=== PATIENT | female | born 1945 | race Caucasian/White ===

== ENCOUNTER → 2016-10-01 | Outpatient (CLI) | payer MEDICARE ==
--- NOTE | 2016-10-01 11:14 | RAD ---
EXAM DESCRIPTION: Elbow,Left 3 Views CLINICAL HISTORY: 71 years Female, PAIN IN LT ELBOW COMPARISON: None. FINDINGS: 3 views of the left elbow show no acute fracture or malalignment. This calcification the soft tissues adjacent to the medial humeral epicondyle which may be related to chronic or remote medial epicondylitis. No joint effusion is identified. There is a small enthesophyte arising from the olecranon at the insertion site of the triceps tendon. Degenerative calcifications are noted along the medial aspect of the left elbow joint. IMPRESSION: Degenerative changes including olecranon spurring, but no acute left elbow abnormality. Electronically signed by: Pavel Dyson MD 10/01/2016 11:12 AM CDT Workstation: [email or web address]
== END ==
LOC: RAD 07:50
PROVIDERS: ATTEND Orthopaedic Surgery
DX: M25.522 Pain in left elbow (principal)

== ENCOUNTER → 2017-03-05 | Outpatient (CLI) | payer MEDICARE | END | disposition home or self-care (01) | LOC: GMAB 11:39 | PROVIDERS: ATTEND Family Medicine | DX: I10 Essential (primary) hypertension (principal) ==

== ENCOUNTER → 2017-12-16 | Outpatient (CLI) | payer MEDICARE ==
--- NOTE | 2017-12-16 09:31 | RAD ---
EXAM DESCRIPTION: Elbow,Left 3 x-ray Views CLINICAL HISTORY: PAIN IN LEFT ELBOW COMPARISON: Previous study October 01, 2016 TECHNIQUE: AP, Lateral, and Oblique FINDINGS: Three-view left elbow shows no fracture or dislocation. There is no bone lesion. Arthritic changes are present with spurring around the radial neck, olecranon and coronoid process of the proximal ulna as well as distal humerus. No joint effusion is evident. There is no radiopaque foreign body. Mild periosteal new bone formation of the distal humeral metaphysis laterally. This was present previously. IMPRESSION: Degenerative changes of the left elbow. Electronically signed by: Adithya Ward MD 12/16/2017 9:30 AM CDT
== END ==
LOC: RAD 08:25
PROVIDERS: ATTEND Orthopaedic Surgery
DX: M25.522 Pain in left elbow (principal)

== ENCOUNTER → 2018-01-13 | Outpatient (CLI) | payer MEDICARE ==
--- NOTE | 2018-01-13 08:35 | RAD ---
EXAM DESCRIPTION: Clavicle,Left CLINICAL HISTORY: 72 years Female, CLAVICLE PAIN COMPARISON: None. TECHNIQUE: 2 views of the left clavicle were obtained. FINDINGS: Moderate degenerative changes are identified in the chromic clavicular joint. The clavicle otherwise appears normal. IMPRESSION: Moderate osteoarthritis of the left acromioclavicular joint. Electronically signed by: [place] Leyva MD 01/13/2018 8:33 AM CDT
--- NOTE | 2018-01-13 08:36 | RAD ---
EXAM DESCRIPTION: Shoulder,Left 2 or More Views CLINICAL HISTORY: 72 years Female, SHOULDER PAIN COMPARISON: None available. FINDINGS: The visualized bones are well-mineralized.No acute fracture or dislocation. The soft tissues appear grossly unremarkable. Moderate acromioclavicular and glenohumeral joint osteoarthritis. IMPRESSION: Moderate acromioclavicular and glenohumeral joint osteoarthritis. Electronically signed by: Florida Leyva MD 01/13/2018 8:34 AM CDT
== END ==
LOC: RAD 08:01
PROVIDERS: ATTEND Orthopaedic Surgery
DX: M25.512 Pain in left shoulder (principal); M19.012 Primary osteoarthritis, left shoulder

== ENCOUNTER → 2018-04-03 | Outpatient (CLI) | payer MEDICARE | LOC: GMAE 10:26 | PROVIDERS: ATTEND Family Medicine | DX: I10 Essential (primary) hypertension (principal) ==

== ENCOUNTER → 2018-07-30 | Outpatient (CLI) | payer MEDICARE ==
--- NOTE | 2018-07-31 17:53 | MAM ---
EXAM DESCRIPTION: 3D Screening BILATERAL : Digital Mammography. CLINICAL HISTORY: 73 years Female SCREENING . No complaints. No personal or family history of breast cancer. Childbirth. Postmenopausal 6 years. HRT 5 or more years ago.. Lifetime risk of developing breast cancer (Tyrer-Cuzick model)(%): 6.6. COMPARISON: Bilateral 2-D screening digital mammography 05/01/2010.. No prior reports available. TECHNIQUE: Bilateral CC and MLO projection full-field images, digital tomosynthesis mammographic technique. Bilateral digital 2-D full-field MLO images. CAD not available for tomosynthesis or 2-D images. FINDINGS: The breast parenchymal density pattern is: Scattered areas of fibroglandular density. No skin thickening or nipple retraction. Bilateral axillary lymph nodes. Fibroglandular tissues predominantly in the middle third of the breast symmetrically distributed around the posterior nipple line and containing multiple microcalcifications. Also bilateral coarse calcifications. Microcalcifications in the middle third right breast, centrally in the dense fibrocystic tissues are somewhat heterogeneous. No new focal, stellate mass or density, focal asymmetry , and no suspicious microcalcifications left breast. IMPRESSION: BI-RADS CATEGORY: 0 - INCOMPLETE- Need additional imaging evaluation. FOLLOW-UP: Recall for additional imaging: Orthogonal digital Spot magnification dense fibroglandular tissues central right breast with orthogonal full-field LM digital tomosynthesis right breast. Targeted right breast ultrasound if indicated by diagnostic images.. Written communication concerning the IMPRESSION and Follow-up, will be mailed to the patient and referring health care provider. Electronically signed by: Elliott De Los Santos MD 07/31/2018 5:51 PM CDT
== END ==
LOC: MAMMO 13:53
PROVIDERS: ATTEND Family Medicine
DX: Z12.31 Encounter for screening mammogram for malignant neoplasm of breast (principal)

== ENCOUNTER → 2018-08-18 | Outpatient (CLI) | payer MEDICARE ==
--- NOTE | 2018-08-18 13:21 | MAM ---
EXAM DESCRIPTION: 3D Diagnostic, Right: Digital Mammography CLINICAL HISTORY: 73 yearsFemaleABNORMAL MAMMO groups of microcalcifications right breast.. COMPARISON: Bilateral screening digital breast tomosynthesis 07/30/2018. . TECHNIQUE: Right breast LM projection full-field images, digital mammographic tomosynthesis technique. Digital spot magnification of the central right breast in the CC and LM projections CAD not utilized. FINDINGS: The breast parenchymal density pattern is: Scattered areas of fibroglandular density. No skin thickening or nipple retraction fibroglandular density is predominantly in the anterior half of the breast with groups of microcalcifications and solitary calcifications. 2 groups of microcalcifications in the central upper outer quadrant of the middle third of the right breast. Minimal heterogeneity but otherwise unremarkable. IMPRESSION: BI-RADS CATEGORY: 3 - PROBABLY BENIGN. Management: Short interval (6-month) follow-up diagnostic breast tomosynthesis on the right.. On or after November 2018. The FINDINGS and the FOLLOW-UP plan were reviewed in person with the patient after the examination. Written communication explaining the IMPRESSION and FOLLOW-UP will be mailed to the patient and referring care provider. Electronically signed by: Elliott De Los Santos MD 08/18/2018 1:19 PM CDT
== END ==
LOC: MAMMO 13:00
PROVIDERS: ATTEND Family Medicine
DX: R92.2 Inconclusive mammogram (principal)
CPT/HCPCS: 77065; G0279

== ENCOUNTER → 2019-08-17 | Outpatient (CLI) | payer MEDICARE ==
--- NOTE | 2019-08-17 11:27 | RAD ---
EXAM DESCRIPTION: Hand x-ray,Left 3 Views CLINICAL HISTORY: PAIN IN LEFT HAND COMPARISON: None Available. TECHNIQUE: AP, LATERAL, AND OBLIQUE FINDINGS: Three x-ray-view left hand shows no fracture or dislocation. Advanced degenerative osteoarthritic narrowing of the DIP joints of the second through fifth digits and of the PIP joint of the fifth digit. Degenerative spurring at the interphalangeal joint of the thumb. Moderate osteoarthritic changes of the lateral carpus and first metacarpal phalangeal joint. IMPRESSION: Degenerative osteoarthritic changes as described. Electronically signed by: Adithya Ward MD 08/17/2019 11:25 AM CDT
--- NOTE | 2019-08-17 11:30 | RAD ---
EXAM DESCRIPTION: Hand x-ray,Right 3 Views CLINICAL HISTORY: PAIN IN RIGHT HAND COMPARISON: None Available. TECHNIQUE: AP, LATERAL, AND OBLIQUE FINDINGS: Three x-ray-view right hand shows no fracture or dislocation. There is no bone lesion. Advanced osteoarthritic changes of the DIP joints of the second through fourth digits with similar changes at the interphalangeal joint of the thumb. Early degenerative changes at the lateral carpus and first metacarpal phalangeal joint. Lesser degenerative narrowing of the PIP joints of the fingers. Mild spurring at the second and third metacarpal phalangeal joints. IMPRESSION: Osteoarthritic changes of the right hand as described. Electronically signed by: Adithya Ward MD 08/17/2019 11:28 AM CDT
== END ==
LOC: RAD 10:04
PROVIDERS: ATTEND Orthopaedic Surgery
DX: M19.041 Primary osteoarthritis, right hand (principal); M19.042 Primary osteoarthritis, left hand